=== PATIENT | female | born 1950 | race Two or more races ===

== ENCOUNTER 2022-06-11 22:55 | Inpatient (IN) | payer OTHER ==
[~2022-06-11] VITALS: Ht 152.4 cm; Wt 70.8 kg
[2022-06-11] MEDS ORDERED: PLAVIX75 MG PO (23:04)
[2022-06-11] MEDS ORDERED: GLUMETZA1000 MG PO (23:04)
--- NOTE | 2022-06-11 23:04 | NUR ---
PACIENTE ALERTA Y ORIENTADA X3. HX DE STROKE. LA MISMA REFIERE QUE EN CORDOVA CASA LE PONCHO UN MAREO Y TENIA DEBILIDAD EN LA LENGUA Y PARA HABLAR. AL MOMENTO DEL TRIAGE SE OBSERVA LA PACIENTE CON DIFICULTAD PARA HABLAR.
--- NOTE | 2022-06-11 23:16 | NUR ---
SE REALIZA EKG Y SE PRESENTA AL DR. BAPTISTE
--- NOTE | 2022-06-12 01:01 | NUR ---
PTE EVALUADA POR EL DR BAPTISTE QUIEN ORDENA EL TX. SE ORIENTA SOBRE EL TX ORDENADO, LO CUAL REFIERE ENTENDER, SE REALIZAN PRUEBAS DE LABORATORIO DAR ORDEN MEDICA Y SIGUIENDO MEDIDAS ASEPTICAS. CT DE RADHA YA REALIZADO.
--- NOTE | 2022-06-12 07:19 | NUR ---
SE RECIBE PACIENTE FEMENINA DE 72 ANOS DE EDAD DORMIDA EN CAMA CON BARANDAS ELEVADAS EN POSICION SEMI SENTADA CONECTADA A MONITOR CARDIACO, SATUROMETRIA DEEPIKA, AREA DE VENOPUNCION PATENTE EN BRAZO DERECHO CON ANGIO #18 BAJANDO TRIDIL 50MG/250ML A 3ML POR HORA ORI DE EDEMAS, ENROJECIMIENTO Y DOLOR AL TACTO. SE ENOCH SIGNOS VITALES. SE DESPIERTA PACIENTE LA CUAL SE TORNA ALERTA Y ORIENTADA X3. PTE PENDIENTE A CONSULTA CON DR. FUCHS. SE MANTIENE PACIENTE EN OBSERVACION POR CAMBIOS
--- NOTE | 2022-06-12 15:14 | NUR ---
PTE ES RECIBIDO POR TURNO ANTERIOR. PTE SE OBSERVA A/O X4. PTE SE OBSERVA CON TRIDIL A 1 ML/HR, YA QUE PRESIONNES ESTAN EN . PTE SE OBSERVA CON VENOPUNCION EN RA CON ANGIO 18 Y 20. PTE SE OBSERVA EN POCISION MAS BAJA. PEND A CONSULTA.
--- NOTE | 2022-06-12 15:36 | NUR ---
SE COLOCA CANULA NASAL A PTE EN 2L DEBIDO A QUE SE OBSERVA CON SATURACION EN 92%. AL COLOCAR CANULA PTE SE OBSERVA CON SAT EN 96%.
== END 2022-06-16 16:23 | disposition home or self-care (01) | DRG 69 ==
LOC: ER 22:55 → SEC-K 06-12 18:30 → MEDJ 06-12 18:30 → MEDI 06-13 11:59 → MEDJ 06-13 12:02
PROVIDERS: ADMIT Internal Medicine; ATTEND Internal Medicine
PROC: B030YZZ Magnetic Resonance Imaging (MRI) of Brain using Other Contrast (ICD-10-PCS; principal; 2022-06-12)
PROC: B24BZZZ Ultrasonography of Heart with Aorta (ICD-10-PCS; 2022-06-12)
PROC: B345ZZZ Ultrasonography of Bilateral Common Carotid Arteries (ICD-10-PCS; 2022-06-12)
PROC: 4A12X4Z Monitoring of Cardiac Electrical Activity, External Approach (ICD-10-PCS; 2022-06-13)
DX: G45.9 Transient cerebral ischemic attack, unspecified (principal); I10 Essential (primary) hypertension; E11.9 Type 2 diabetes mellitus without complications; Z79.4 Long term (current) use of insulin; E78.5 Hyperlipidemia, unspecified; Z20.822 Contact with and (suspected) exposure to COVID-19
CPT/HCPCS: 70545